=== PATIENT | female | born 1960 ===

== ENCOUNTER 2018-07-25 09:29 | Outpatient (CLI) | payer OTHER ==
[~2018-07-25] VITALS: Ht 152.4 cm; Wt 78.0 kg
== END 2018-07-25 09:40 | disposition home or self-care (01) ==
LOC: OFIC 805 09:29
DX: H90.72 Mixed conductive and sensorineural hearing loss, unilateral, left ear, with unrestricted hearing on the contralateral side (principal); H80.82 Other otosclerosis, left ear

== ENCOUNTER 2018-09-26 10:09 | Outpatient (CLI) | payer OTHER | END 2018-09-26 10:25 | disposition home or self-care (01) | LOC: OFIC 805 10:09 | DX: H90.6 Mixed conductive and sensorineural hearing loss, bilateral (principal); H80 Otosclerosis ==

== ENCOUNTER 2018-10-03 10:42 | Outpatient (CLI) | payer OTHER ==
[~2018-10-03] VITALS: Ht 152.4 cm; Wt 78.0 kg
== END 2018-10-03 11:00 | disposition home or self-care (01) ==
LOC: OFIC 805 10:42
DX: H90.6 Mixed conductive and sensorineural hearing loss, bilateral (principal); H80 Otosclerosis

== ENCOUNTER 2018-11-07 10:52 | Outpatient (CLI) | payer OTHER ==
[~2018-11-07] VITALS: Ht 152.4 cm; Wt 78.0 kg
== END 2018-11-07 11:10 | disposition home or self-care (01) ==
LOC: OFIC 805 10:52
DX: H90.71 Mixed conductive and sensorineural hearing loss, unilateral, right ear, with unrestricted hearing on the contralateral side (principal); H80 Otosclerosis

== ENCOUNTER 2018-12-19 10:25 | Outpatient (CLI) | payer OTHER ==
[~2018-12-19] VITALS: Ht 152.4 cm; Wt 78.0 kg
== END 2018-12-19 10:45 | disposition home or self-care (01) ==
LOC: OFIC 805 10:25
DX: H80 Otosclerosis (principal)

== ENCOUNTER 2019-02-27 10:00 | Outpatient (CLI) | payer OTHER ==
[~2019-02-27] VITALS: Ht 152.4 cm; Wt 78.0 kg
== END 2019-02-27 10:15 | disposition home or self-care (01) ==
LOC: OFIC 805 10:00
DX: H80 Otosclerosis (principal); H81.10 Benign paroxysmal vertigo, unspecified ear

== ENCOUNTER 2019-04-03 10:09 | Outpatient (CLI) | payer OTHER ==
[~2019-04-03] VITALS: Ht 152.4 cm; Wt 78.0 kg
== END 2019-04-03 10:34 | disposition home or self-care (01) ==
LOC: OFIC 805 10:09
DX: H90.6 Mixed conductive and sensorineural hearing loss, bilateral (principal); H80 Otosclerosis